=== PATIENT | male | born 1970 | race Caucasian/White ===

== ENCOUNTER 2018-08-18 12:42 | Inpatient (IN) | payer OTHER ==
--- NOTE | 2018-08-18 15:57 | GHP ---
[f rep st] HISTORY AND PHYSICAL POST ADMISSION PHYSICIAN EVALUATION AND REHABILITATION TREATMENT PLAN DATE OF ADMISSION: 08/18/2018 DATE OF EVALUATION: 08/18/2018. TIME OF EVALUATION: 1320. REFERRING FACILITY: [facility]. IMPAIRMENT GROUP: 1.1. DATE OF ONSET: 08/07/2018. REFERRING PHYSICIAN: Dr. Islas. CONSULTING PHYSICIANS: 1. Dr. Kiran with Critical Care. 2. Dr. Gross with Neurology. 3. Dr. Lee with Cardiology. 4. Dr. Aranda with Gastroenterology. REHABILITATION DIAGNOSIS: Posterior circulation cerebrovascular accident with rightvisual field cut after myocardial infarction. ETIOLOGIC DIAGNOSIS: Left body involvement (right brain). HISTORY OF PRESENT ILLNESS: This man had chest pain at home and called an ambulance. He developed ventricular fibrillation cardiac arrest in the ambulance on the way to the hospital. He had intermittent return of spontaneous circulation after treatment per ACLS protocols. In the hospital, he was initially too unstable to go to the cardiac [facility], so he was treated with tPA thrombolysis. When he later was taken to the laborer [facility], he was found to have 100% mid-LAD lesion, which was successfully stented with a drug-eluting stent. He was treated with dual-antiplatelet therapy and a statin. Beta randell and ROLY inhibitor were initially contraindicated due to cardiogenic shock. He had placement of a balloon pump, which was later changed to an Impella. He was intubated and treated with hypothermia after cardiac arrest protocol. Hospital complications included significant bleeding from his groin site. He developed a large hematoma of the left groin, which was successfully treated. He needed a blood transfusion for anemia. He had nonsustained wide-complex tachycardia, which was treated with amiodarone. There was acute kidney injury. There was massive rectal bleeding with a previous diagnosis of likely ulcerative colitis. Ejection fraction on echo during his stay was 53%. He was noted to have a right visual field deficit. A CT of the brain showed a left subacute posterior cerebral artery stroke in the parietooccipital region. He was ultimately medically stabilized and appropriate for inpatient rehabilitation. OTHER STUDIES AND LABS DURING HIS STAY: Cardiac cath showed single-vessel coronary artery disease in the mid-left anterior descending artery. Chest x- ray showed no evidence for acute infiltrate or other acute cardiopulmonary disease. CT abdomen and pelvis was consistent with active bleeding of the left common femoral vein in the left groin and pancolitis. Head CT showed an ischemic infarct in the left posterior cerebral artery distribution, which was most likely subacute. MOST RECENT LABS STUDIES: Basic metabolic profile on 08/16/2018 was overall normal but for a potassium of 3.0. The next day, on 08/17/2018, potassium had improved to 3.4. CBC done on 08/17/2018 showed anemia with a hemoglobin of 8.3 and hematocrit of 26. Platelet count was normal. The white blood cell count was normal, and the anemia had been improving over the previous day. PRECAUTIONS: He is a fall risk. ACTIVE COMORBIDITIES: He has no active tier 1, tier 2, or tier 3 comorbidities. PAST MEDICAL HISTORY: He denies any history of prior medical illnesses, though he had a colonoscopy approximately a week prior to his hospitalization with pathology consistent with ulcerative colitis. PAST SURGICAL HISTORY: He reports history of a hernia surgery when he was a child. PREHOSPITAL MEDICATIONS: He was on no medications. ADMISSION MEDICATIONS: 1. Aspirin 81 mg p.o. daily. 2. Atorvastatin 40 mg p.o. at bedtime. 3. Lisinopril 5 mg p.o. daily. 4. Mesalamine 1.2 g delayed-release tablet, 3.6 g by mouth daily. 5. Metoprolol 12.5 mg p.o. b.i.d. 6. Pantoprazole 40 mg p.o. b.i.d. with meals. 7. Potassium chloride 20 mEq by mouth b.i.d. with meals. 8. Ticagrelor 90 mg p.o. b.i.d. ALLERGIES: There are no known drug allergies. PSYCHOSOCIAL: He is and lives with his . He has 2 teenage children. He has a remote history of cigarette smoking but is not a smoker currently. He uses occasional alcohol. 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 FAMILY HISTORY: His mother of COPD. His father is alive at 94 years old with multiple medical problems. REVIEW OF SYSTEMS: He has a hoarse voice, which he thinks if from having been intubated and reports it is improving. He is aware of a right visual field defect. He denies headache, difficulty swallowing, weakness, numbness or tingling of the extremities, or loss of sensation. He denies fever or chills. He denies cough or dyspnea. He has no chest pain or palpitations. He denies nausea, vomiting, or constipation. He is having frequent loose stools. He denies dysuria or urinary frequency, pain or joint swelling. He endorses a feeling of sadness. He reports he snores at night. He has been sleeping well. He is aware of difficulty finding words. PHYSICAL EXAM: VITAL SIGNS: Blood pressure is 115/76, heart rate is 85, respiratory rate 15, oxygen saturation 96% on room air, temperature is 36.4 degrees Centigrade. GENERAL: This is a well-nourished, well-developed man, sitting in a chair, dressed in street clothes, cooperative, and in no acute distress. HEENT: Extraocular movements are intact. Pupils are equal, round, and reactive to light. He has lateral deviation of left eye when he is not fixing his gaze. Mucous membranes are moist. Dentition is in good condition. Mostly uncrowded airway, Mallampati class 2. He has a slightly erythematous uvula. He has a hoarse voice. NECK: Supple. HEART: There is a regular rate and rhythm. No murmurs or gallops. There is no JVD. There is no carotid bruit. LUNGS: Clear to auscultation bilaterally. ABDOMEN: Soft, nontender. Normoactive bowel sounds and no hepatosplenomegaly. EXTREMITIES: There is no cyanosis, clubbing, or edema. NEUROLOGIC: He is alert and oriented x3. He may have some word-finding difficulties but it is subtle. Cranial nerves 2-12 are grossly intact. There is no focal weakness. Sensation is intact to light touch. Deep tendon reflexes are 2+ bilaterally at the biceps, patellar, and Achilles tendons. There is no pronator drift. There is a right visual field cut. SKIN: There is minimal crusting around the proximal gluteal fold. There is no ulceration and no erythema. CURRENT LEVEL OF FUNCTION PER THE PREADMISSION SCREEN: Regarding diet, feeding , and swallowing, he was on a regular diet with thin liquids. Grooming required minimal assist with verbal cues and seated bathing required maximal assist for sponge bathing. Dressing was done with minimal to moderate assist and verbal cues for his shirt. He required maximal assist to don socks. Bed mobility for supine to sit required minimal assist and sit to supine was done with supervision. Transfers required minimal assist for sit to stand and moderate assist for toilet transfers. using a front-wheeled walker. Balance required minimal assist to stand and standby assist for seated balance. He was noted to have easy fatigue. He was able to ambulate 60 feet with a front- wheeled walker, seated rest breaks, and cues to scan the right side. He has a tendency to get the front-wheeled walker caught on obstacles on his right side. Regarding cognition, the [place] Cognitive Assessment, was administered and he scored 18/25. He had difficulty with generative naming and delayed recall. He had decreased orientation. He had a right visual field deficit and right neglect. On today's exam, he appears to have improved mobility, able to arise from seated to standing, ambulate with front-wheeled walker with no assistance. Otherwise, today's exam is consistent with the preadmission screen. IMPRESSION: This is a 48-year-old man who suffered a myocardial infarction with ventricular fibrillation cardiac arrest while in the ambulance. He initially was treated with tPA thrombolysis because of unstable cardiac condition. Eventually, he went to the catheterization lab where he was found to have a mid-left anterior descending occlusion. This was treated with a drug- eluting stent. He required an intra-aortic balloon pump and subsequently, an Impella to maintain circulation. He was intubated and treated with hypothermia after cardiac arrest protocol. Hospital complications included anemia with bleeding at the groin site from cardiac catheterization, about 500 cc gastrointestinal blood loss, which was attributed to ulcerative colitis, acute kidney injury, and a right posterior cerebral artery cerebrovascular accident. There was acute kidney injury and hypokalemia. He was treated with dual- antiplatelet therapy, atorvastatin, beta randell, an ROLY inhibitor, and mesalamine for the ulcerative colitis. He was eventually medically stabilized and is appropriate for inpatient rehabilitation. His plan is to complete a rehabilitation stay and then return home with his family and home care or outpatient services depending on that time. For a safe discharge, he will need to advance to supervision level with self-care and mobility using the least restrictive device. It is likely he will require support at home for instrumental activities of daily living. He will have therapy with Physical Therapy, Occupational Therapy, and Speech and language Pathology for 60 minutes per day for each discipline on 5 to 7 days of the week. His expected duration of stay is 14 to 21 days. It is anticipated that upon discharge, he will continue to benefit from outpatient therapy including OT, BATTERY FILLER, and PT. Additionally, he will benefit from a stroke support group and cardiac rehabilitation. PLAN: 1. Debility and right visual field cut following myocardial infarction, hypothermia after cardiac arrest protocol, and some time on the ventilator with a right posterior cerebral artery stroke. PT and OT to optimize mobility and activities of daily living towards the supervision level. 2. Cognitive impairment. 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 He will have assessment and treatment per Speech and Language Pathology. 3. Coronary artery disease, status post mid-LAD drug-eluting stent. He is treated for secondary prevention with dual-antiplatelet therapy which will likely continue for a year, ROLY inhibitor, statin, and beta randell. Discharge instructions include titrating beta randell if possible, so his blood pressure will be carefully monitored. 4. Ulcerative colitis with large GI bleed while in the hospital. Continue mesalamine. The Lialda brand which was prescribed in the hospital is not available on formulary, so we will treat with Delzicol 800 mg t.i.d. and this should continue for 6 weeks. He will follow up with [employer]ated Truck Driver, Dr. Jimenez, after his discharge for further treatment. Additionally, continue pantoprazole 40 mg per day. 5. Acute kidney injury and hypokalemia in the hospital. Check BMP in the morning. 6. Anemia in the hospital. Check CBC. 7. Adjustment disorder with depressed mood versus depression after myocardial infarction. He indicated preference to not take medications. There is not strong literature supporting treatment of depression improving outcomes and situation. He will be monitored for symptoms but will consider further discussion regarding antidepressant therapy. 8. Followup. He has his followup scheduled with Cardiology Nurse Practitioner , Luis Spencer, for 08/24/2018, at 1:15 p.m. Regarding ulcerative colitis. he will see [employer] Driver, Dr. Norma Jimenez, after his discharge from rehabilitation. His primary care provider is Dr. Jorgensen, with whom he will follow up after discharge. /[id number]/MODL MTDD
[2018-08-18] MEDS: POTASSIUM CL 20 MEQ TAB PO SCH (17:29)
[2018-08-18] MEDS: PANTOPRAZOLE SODIUM 40 MG TAB PO SCH (17:29)
[2018-08-18] MEDS: ATORVASTATIN CALCIUM 40 MG TAB PO SCH (20:21)
[2018-08-18] MEDS: METOPROLOL TARTRATE 25 MG TAB PO SCH (20:21)
[2018-08-18] MEDS: TICAGRELOR 90 MG TAB PO SCH (20:22)
[2018-08-19] MEDS: MESALAMINE 400 MG CAP.DR PO SCH ×3 (07:17→16:04)
[2018-08-19] MEDS: PANTOPRAZOLE SODIUM 40 MG TAB PO SCH ×2 (08:51→18:22)
[2018-08-19] MEDS: POTASSIUM CL 20 MEQ TAB PO SCH (08:52)
[2018-08-19] MEDS: LISINOPRIL 5 MG TAB PO SCH (08:54)
[2018-08-19] MEDS: ASPIRIN 81 MG CHEWABLE TAB PO SCH (08:54)
[2018-08-19] MEDS: METOPROLOL TARTRATE 25 MG TAB PO SCH ×2 (08:54→21:23)
[2018-08-19] MEDS: TICAGRELOR 90 MG TAB PO SCH ×2 (08:54→21:23)
[2018-08-19 08:59] LABS: PLATELET COUNT 403 10^3/uL (150-400)
--- NOTE | 2018-08-19 09:37 | SOAPPROG ---
SOAP Progress Note Assessment/Plan: Assessment: Debility and right visual field cut following myocardial infarction, hypothermia after cardiac arrest protocol, and some time on the ventilator with a right posterior cerebral artery stroke. PT and OT to optimize mobility and activities of daily living towards the supervision level. Cognitive impairment. 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 He will have assessment and treatment per Speech and Language Pathology. Cough. New on 08/19/2018? No signs or symptoms of pneumonia otherwise, no hypoxia or tachypnea, and normal white blood cell count. Continue to monitor. Coronary artery disease, status post mid-LAD drug-eluting stent. He is treated for secondary prevention with dual-antiplatelet therapy which will likely continue for a year, ROLY inhibitor, statin, and beta randell. Discharge instructions include titrating beta randell if possible, so his blood pressure will be carefully monitored. Ulcerative colitis with large GI bleed while in the hospital. Continue mesalamine. The Lialda brand which was prescribed in the hospital is not available on formulary, so we will treat with Delzicol 800 mg t.i.d. and this should continue for 6 weeks. He will follow up with Nephrology Nurse, Dr. Jimenez, after his discharge for further treatment. Additionally, continue pantoprazole 40 mg per day. * Still having frequent bowel movements. Continue monitor. Acute kidney injury and hypokalemia in the hospital. * Blood sample was hemolyzed this morning, 08/19/2018. He prefers to not have another blood draw today. Discussed further with patient. Will reduce potassium to daily starting 08/19/2018. Check BMP on 08/22/2018. Will discontinue potassium if possible. Anemia in the hospital. Improving on CBC 08/19/2018. Adjustment disorder with depressed mood versus depression after myocardial infarction. He indicated preference to not take medications. There is not strong literature supporting treatment of depression improving outcomes and situation. He will be monitored for symptoms but will consider further discussion regarding antidepressant therapy. Followup. He has his followup scheduled with Cardiology Nurse Practitioner, Luis Spencer, for 08/24/2018, at 1:15 p.m. Regarding ulcerative colitis. he will see Nephrology Nurse, Dr. Norma Jimenez, after his discharge from rehabilitation. His primary care provider is Dr. Jorgensen, with whom he will follow up after discharge. 08/19/18 11:50 Subjective: Slept well. Has some pain in his chest wall which she attributes to the chest compressions during his resuscitation. He has an occasional cough and is bringing up some phlegm. He denies dyspnea, fevers, chills, head congestion or URI symptoms. There is no paroxysmal nocturnal dyspnea. Objective: Vital Signs Temp Pulse Resp BP Pulse Ox 36.6 C 103 H 16 111/71 99 08/19/18 06:06 08/19/18 08:49 08/19/18 06:06 08/19/18 08:49 08/19/18 08:49 Laboratory Results 08/19/18 06:00 08/18/18 08/19/18 08/20/18 05:59 05:59 05:59 Intake Total 750 Balance 750 Physical Exam - Physical Exam General Appearance: WD/WN, alert, no apparent distress Respiratory: normal breath sounds, No crackles, No rhonchi, No wheezing Cardiac/Chest: regular rate, rhythm, No edema, No diastolic murmur, No systolic murmur Skin: normal color, warm/dry Neuro/Psych: alert, oriented x 3, other (Flat affect) ICD10 Worksheet Patient Problems: Problems Problem Status Onset Cerebrovascular accident (CVA) involving posterior circulation Acute
--- NOTE | 2018-08-19 09:37 | PDOREHIP ---
Admission [facility] - Admission - 3 Day Assessment Period Admission Date/Day 1: 08/18/18 Day 2: 08/19/18 Day 3: 08/20/18 - Active Diagnoses Comorbidities and Co-existing Conditions at Admission: 58883. None of the Above - Skin Conditions Unhealed Pressure Ulcer (1 or more/Stage 1 or >)-Admission: 0. No # Stage 1 Pressure Ulcers-Admission: 0 # Stage 2 Pressure Ulcers-Admission: 0 # Stage 3 Pressure Ulcers-Admission: 0 # Stage 4 Pressure Ulcers-Admission: 0 # Unstageable Pressure Ulcers (Non-remove Dress)-Admission: 0 # Unstageable Pressure Ulcers (Slough/Eschar)-Admission: 0 # Unstageable Pressure Ulcers (Deep Tissue Injury)-Admission: 0
[2018-08-19] MEDS: ATORVASTATIN CALCIUM 40 MG TAB PO SCH (21:22)
[2018-08-20] MEDS: MESALAMINE 400 MG CAP.DR PO SCH ×3 (07:06→17:08)
[2018-08-20] MEDS: PANTOPRAZOLE SODIUM 40 MG TAB PO SCH ×2 (07:41→17:09)
[2018-08-20] MEDS: POTASSIUM CL 20 MEQ TAB PO SCH (08:15)
[2018-08-20] MEDS: METOPROLOL TARTRATE 25 MG TAB PO SCH ×2 (08:19→20:47)
[2018-08-20] MEDS: LISINOPRIL 5 MG TAB PO SCH (08:20)
[2018-08-20] MEDS: TICAGRELOR 90 MG TAB PO SCH ×2 (08:20→20:48)
[2018-08-20] MEDS: ASPIRIN 81 MG CHEWABLE TAB PO SCH (08:20)
--- NOTE | 2018-08-20 11:51 | HOSPPROG ---
Hospitalist Progress Note Assessment/Plan: Debility and right visual field cut following myocardial infarction, hypothermia after cardiac arrest protocol, and some time on the ventilator with a right posterior cerebral artery stroke. PT and OT to optimize mobility and activities of daily living towards the supervision level. Cognitive impairment. 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 He will have assessment and treatment per Speech and Language Pathology. Cough. New on 08/19/2018? No signs or symptoms of pneumonia otherwise, no hypoxia or tachypnea, and normal white blood cell count. Continue to monitor. Coronary artery disease, status post mid-LAD drug-eluting stent. He is treated for secondary prevention with dual-antiplatelet therapy which will likely continue for a year, ROLY inhibitor, statin, and beta randell. Discharge instructions include titrating beta randell if possible, so his blood pressure will be carefully monitored. Ulcerative colitis with large GI bleed while in the hospital. Continue mesalamine. The Lialda brand which was prescribed in the hospital is not available on formulary, so we will treat with Delzicol 800 mg t.i.d. and this should continue for 6 weeks. He will follow up with Music Teacher, Dr. Jimenez, after his discharge for further treatment. Additionally, continue pantoprazole 40 mg per day. * Still having frequent bowel movements. Continue monitor. Acute kidney injury and hypokalemia in the hospital. * Blood sample was hemolyzed this morning, 08/19/2018. He prefers to not have another blood draw today. Discussed further with patient. Will reduce potassium to daily starting 08/19/2018. Check BMP on 08/22/2018. Will discontinue potassium if possible. Anemia in the hospital. Improving on CBC 08/19/2018. Adjustment disorder with depressed mood versus depression after myocardial infarction. He indicated preference to not take medications. There is not strong literature supporting treatment of depression improving outcomes and situation. He will be monitored for symptoms but will consider further discussion regarding antidepressant therapy. Followup. He has his followup scheduled with Cardiology Nurse Practitioner, Luis Spencer, for 08/24/2018, at 1:15 p.m. Regarding ulcerative colitis. he will see Music Teacher, Dr. Norma Jimenez, after his discharge from rehabilitation. His primary care provider is Dr. Jorgensen, with whom he will follow up after discharge. Subjective: c/o right peripheral visual field defect. some chest soreness Objective: Vital Signs Temp Pulse Resp BP Pulse Ox 36.6 C 61 15 133/80 H 96 08/20/18 07:41 08/20/18 08:19 08/20/18 07:41 08/20/18 08:20 08/20/18 07:41 Laboratory Results 08/19/18 06:00 08/19/18 06:00 08/19/18 08/20/18 08/21/18 05:59 05:59 05:59 Intake Total 750 2140 480 Balance 750 2140 480 - Physical Exam Constitutional: no apparent distress, appears nourished, not in pain Eyes: anicteric sclera, EOMI Ears, Nose, Mouth, Throat: moist mucous membranes Cardiovascular: regular rate and rhythym, no murmur, rub, or gallop Respiratory: no respiratory distress, no rales or rhonchi, clear to auscultation Gastrointestinal: normoactive bowel sounds, soft, non-tender abdomen, no palpable masses Neurologic: AAOx3 Psychiatric: interacting appropriately, not anxious, not encephalopathic, thought process linear ICD10 Worksheet Patient Problems: Problems Problem Status Onset Cerebrovascular accident (CVA) involving posterior circulation Acute
[2018-08-20] MEDS: ATORVASTATIN CALCIUM 40 MG TAB PO SCH (20:48)
[2018-08-21] MEDS: MESALAMINE 400 MG CAP.DR PO SCH ×3 (07:02→16:56)
[2018-08-21] MEDS: TICAGRELOR 90 MG TAB PO SCH ×2 (08:24→21:19)
[2018-08-21] MEDS: LISINOPRIL 5 MG TAB PO SCH (08:24)
[2018-08-21] MEDS: POTASSIUM CL 20 MEQ TAB PO SCH ×2 (08:24→08:35)
[2018-08-21] MEDS: ASPIRIN 81 MG CHEWABLE TAB PO SCH (08:24)
[2018-08-21] MEDS: METOPROLOL TARTRATE 25 MG TAB PO SCH ×2 (08:24→21:19)
[2018-08-21] MEDS: PANTOPRAZOLE SODIUM 40 MG TAB PO SCH ×2 (08:25→17:37)
--- NOTE | 2018-08-21 12:15 | HOSPPROG ---
Hospitalist Progress Note Assessment/Plan: Debility and right visual field cut following myocardial infarction, hypothermia after cardiac arrest protocol, and some time on the ventilator with a right posterior cerebral artery stroke. PT and OT to optimize mobility and activities of daily living towards the supervision level. Cognitive impairment. 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 He will have assessment and treatment per Speech and Language Pathology. Cough. New on 08/19/2018? No signs or symptoms of pneumonia otherwise, no hypoxia or tachypnea, and normal white blood cell count. Continue to monitor. * no complaint this weekend Coronary artery disease, status post mid-LAD drug-eluting stent. He is treated for secondary prevention with dual-antiplatelet therapy which will likely continue for a year, ROLY inhibitor, statin, and beta randell. Discharge instructions include titrating beta randell if possible, so his blood pressure will be carefully monitored. Ulcerative colitis with large GI bleed while in the hospital. Continue mesalamine. The Lialda brand which was prescribed in the hospital is not available on formulary, so we will treat with Delzicol 800 mg t.i.d. and this should continue for 6 weeks. He will follow up with Bridge Opener, Dr. Jimenez, after his discharge for further treatment. Additionally, continue pantoprazole 40 mg per day. * Still having frequent bowel movements. Continue monitor. Acute kidney injury and hypokalemia in the hospital. * Blood sample was hemolyzed this morning, 08/19/2018. He prefers to not have another blood draw today. Discussed further with patient. Will reduce potassium to daily starting 08/19/2018. Check BMP on 08/22/2018. Will discontinue potassium if possible. * refused potassium 08/21 - check bmp tomorrow Anemia in the hospital. Improving on CBC 08/19/2018. Adjustment disorder with depressed mood versus depression after myocardial infarction. He indicated preference to not take medications. There is not strong literature supporting treatment of depression improving outcomes and situation. He will be monitored for symptoms but will consider further discussion regarding antidepressant therapy. Followup. He has his followup scheduled with Cardiology Nurse Practitioner, Luis Spencer, for 08/24/2018, at 1:15 p.m. Regarding ulcerative colitis. he will see Bridge Opener, Dr. Norma Jimenez, after his discharge from rehabilitation. His primary care provider is Dr. Jorgensen, with whom he will follow up after discharge. Subjective: no new compliants. eating better with reg diet rather than cardiac Objective: Vital Signs Temp Pulse Resp BP Pulse Ox 36.6 C 76 16 125/84 H 93 08/21/18 06:25 08/21/18 08:24 08/21/18 06:25 08/21/18 08:24 08/21/18 06:25 Laboratory Results 08/19/18 06:00 08/19/18 06:00 08/20/18 08/21/18 08/22/18 05:59 05:59 05:59 Intake Total 2139 2079 480 Balance 2139 2079 480 - Physical Exam Constitutional: no apparent distress, appears nourished, not in pain Eyes: anicteric sclera, EOMI Ears, Nose, Mouth, Throat: moist mucous membranes Cardiovascular: regular rate and rhythym Respiratory: no respiratory distress Neurologic: AAOx3 Psychiatric: interacting appropriately, not anxious, not encephalopathic, thought process linear ICD10 Worksheet Patient Problems: Problems Problem Status Onset Cerebrovascular accident (CVA) involving posterior circulation Acute
[2018-08-21] MEDS: ATORVASTATIN CALCIUM 40 MG TAB PO SCH (21:19)
[2018-08-22] MEDS: MESALAMINE 400 MG CAP.DR PO SCH ×3 (07:06→16:04)
[2018-08-22] MEDS: ASPIRIN 81 MG CHEWABLE TAB PO SCH (08:33)
[2018-08-22] MEDS: PANTOPRAZOLE SODIUM 40 MG TAB PO SCH ×2 (08:33→18:02)
[2018-08-22] MEDS: LISINOPRIL 5 MG TAB PO SCH (08:34)
[2018-08-22] MEDS: POTASSIUM CL 20 MEQ TAB PO SCH (08:39)
[2018-08-22] MEDS: TICAGRELOR 90 MG TAB PO SCH ×2 (08:40→21:16)
--- NOTE | 2018-08-22 11:07 | SOAPPROG ---
SOAP Progress Note Assessment/Plan: Assessment: Debility and right visual field cut following myocardial infarction, hypothermia after cardiac arrest protocol, and some time on the ventilator with a right posterior cerebral artery stroke. * Initial functional independence measure is 91 on 08/22/2018. Independent with bed mobility and transfers. Scored 51/56 on the Castaneda balance inventory. Climbed and descended 12 stairs with 1 rail. Independent with ADLs. Has a right visual field cut. * Continue PT and OT to optimize mobility and activities of daily living towards the supervision level. Cognitive impairment. 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 * Has issues with memory and attention. Has occasional word retrieval difficulty. Reading abilities decreased due to his visual field cut. He will need assistance with medication management and will need to recover before he is able to return to work. * Continue SKIDDER RUNNER Cough and hoarseness. * No signs or symptoms of pneumonia otherwise, no hypoxia or tachypnea, and normal white blood cell count. * If hoarseness persists he should consider endoscopy to rule out granuloma formation or other complication of [place]. Coronary artery disease, status post mid-LAD drug-eluting stent. He is treated for secondary prevention with dual-antiplatelet therapy which will likely continue for a year, ROLY inhibitor, statin, and beta randell. Discharge instructions include titrating beta randell if possible, so his blood pressure will be carefully monitored. * Blood pressure is running low, 08/22/2018. Metoprolol was held. Added parameters for metoprolol. Will decrease lisinopril to 2.5 mg q.day starting . Ulcerative colitis with large GI bleed while in the hospital. Continue mesalamine. The Lialda brand which was prescribed in the hospital is not available on formulary, so we will treat with Delzicol 800 mg t.i.d. and this should continue for 6 weeks. He will follow up with Finishing Tunnel Operator, Dr. Jimenez, after his discharge for further treatment. Additionally, continue pantoprazole 40 mg per day. * He reports 1 normal bowel movement each day, and also has more frequent very small loose bowel movements, which do not concern him. * No other symptoms including no abdominal pain and no fevers or chills. Acute kidney injury and hypokalemia in the hospital. * Blood sample was hemolyzed this morning, 08/19/2018. He prefers to not have another blood draw today. Discussed further with patient. Will reduce potassium to daily starting 08/19/2018. * He has refused potassium supplement x2 days. BMP on 08/22/2018 is hemolyzed. * Repeat BMP on 08/24/2018 bed perhaps oven loader from clinic across the street can come to the draw. Anemia in the hospital. Improving on CBC 08/19/2018. * Repeat 08/23/2018. Adjustment disorder with depressed mood versus depression after myocardial infarction. He indicated preference to not take medications. There is not strong literature supporting treatment of depression improving outcomes and situation. He will be monitored for symptoms but will consider further discussion regarding antidepressant therapy. DISPOSITION: Attended staffing, 08/22/2018. Discussed with case management, dietitian, nursing, PT, OT, SKIDDER RUNNER. Lives with his and 2 teenage children. She works at home part of the time but is mostly unavailable to provide assistance during the day. Discharge date set for 08/24/2018. Followup. He has his followup scheduled with Cardiology Nurse Practitioner, Luis Spencer, for 08/24/2018, at 1:15 p.m. Regarding ulcerative colitis. he will see Finishing Tunnel Operator, Dr. Norma Jimenez, after his discharge from rehabilitation. His primary care provider is Dr. Jorgensen, with whom he will follow up after discharge. He will be referred for cardiac rehabilitation. He will be referred to Neuro-Ophthalmology. 08/22/18 10:51 Objective: Vital Signs Temp Pulse Resp BP Pulse Ox 36.5 C 88 16 99/64 L 97 08/22/18 06:27 08/22/18 10:50 08/22/18 06:27 08/22/18 10:50 08/22/18 08:45 Laboratory Results 08/19/18 06:00 08/22/18 07:15 08/21/18 08/22/18 08/23/18 05:59 05:59 05:59 Intake Total 2080 720 1250 Balance 2080 720 1250 - Time Spent With Patient Time Spent With Patient: Greater than 35 min floor time today, including more than 50% of time in coordination of care during staffing meeting, and counseling patient. ICD10 Worksheet Patient Problems: Problems Problem Status Onset Cerebrovascular accident (CVA) involving posterior circulation Acute
[2018-08-22] MEDS: METOPROLOL TARTRATE 25 MG TAB PO SCH ×2 (11:08→21:14)
[2018-08-22] MEDS: ATORVASTATIN CALCIUM 40 MG TAB PO SCH (21:13)
[2018-08-23] MEDS: MESALAMINE 400 MG CAP.DR PO SCH ×3 (07:00→15:53)
[2018-08-23] MEDS: POTASSIUM CL 20 MEQ TAB PO SCH (07:39)
[2018-08-23] MEDS: LISINOPRIL 5 MG TAB PO SCH (07:56)
[2018-08-23] MEDS: ASPIRIN 81 MG CHEWABLE TAB PO SCH (07:56)
[2018-08-23] MEDS: TICAGRELOR 90 MG TAB PO SCH ×2 (07:56→20:52)
[2018-08-23] MEDS: PANTOPRAZOLE SODIUM 40 MG TAB PO SCH ×2 (07:56→15:56)
[2018-08-23] MEDS: METOPROLOL TARTRATE 25 MG TAB PO SCH ×2 (07:59→20:52)
[2018-08-23 15:38] LABS: PLATELET COUNT 644 10^3/uL (150-400)
[2018-08-23] MEDS ORDERED: LISINOPRIL 5 MG TAB PO SCH (15:49)
--- NOTE | 2018-08-23 15:50 | SOAPPROG ---
SOAP Progress Note Assessment/Plan: Assessment: Debility and right visual field cut following myocardial infarction, hypothermia after cardiac arrest protocol, and some time on the ventilator with a right posterior cerebral artery stroke. * Initial functional independence measure is 91 on 08/22/2018. Independent with bed mobility and transfers. Scored 51/56 on the Castaneda balance inventory. Climbed and descended 12 stairs with 1 rail. Independent with ADLs. Has a right visual field cut. * Continue PT and OT to optimize mobility and activities of daily living towards the supervision level. Cognitive impairment. 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 * Has issues with memory and attention. Has occasional word retrieval difficulty. Reading abilities decreased due to his visual field cut. He will need assistance with medication management and will need to recover before he is able to return to work. * Continue LITHOGRAPHIC PRESS OPERATOR APPRENTICE Cough and hoarseness. * No signs or symptoms of pneumonia otherwise, no hypoxia or tachypnea, and normal white blood cell count. * If hoarseness persists he should consider endoscopy to rule out granuloma formation or other complication of [place] roy. Coronary artery disease, status post mid-LAD drug-eluting stent. He is treated for secondary prevention with dual-antiplatelet therapy which will likely continue for a year, ROLY inhibitor, statin, and beta randell. Discharge instructions include titrating beta randell if possible, so his blood pressure will be carefully monitored. * Blood pressure is running low, 08/22/2018. Metoprolol was held. Added parameters for metoprolol. Will decrease lisinopril to 2.5 mg q.day starting . * BMP normal with no dehydration. CBC with improving anemia. BNP 439, neither ruling out nor ruling in CHF. Message left for mainframe programmer analyst Dr. Lee. Will follow-up with Dr. Lee's PA tomorrow 08/24/2018 after discharge. Ulcerative colitis with large GI bleed while in the hospital. Continue mesalamine. The Lialda brand which was prescribed in the hospital is not available on formulary, so we will treat with Delzicol 800 mg t.i.d. and this should continue for 6 weeks. He will follow up with Passenger Car Upholsterer Apprentice, Dr. Jimenez, after his discharge for further treatment. Additionally, continue pantoprazole 40 mg per day. * He reports 1 normal bowel movement each day, and also has more frequent very small loose bowel movements, which do not concern him. * No other symptoms including no abdominal pain and no fevers or chills. Acute kidney injury and hypokalemia in the hospital. * Blood sample was hemolyzed this morning, 08/19/2018. He prefers to not have another blood draw today. Discussed further with patient. Will reduce potassium to daily starting 08/19/2018. * He has refused potassium supplement x2 days. BMP on 08/22/2018 is hemolyzed. * Repeat BMP on 08/24/2018 bed perhaps ep tech from clinic across the street can come to the draw. Anemia in the hospital. Improving on CBC 08/19/2018. * Improving 08/23/2018. Adjustment disorder with depressed mood versus depression after myocardial infarction. He indicated preference to not take medications. There is not strong literature supporting treatment of depression improving outcomes and situation. He will be monitored for symptoms but will consider further discussion regarding antidepressant therapy. DISPOSITION: Attended staffing, 08/22/2018. Discussed with case management, dietitian, nursing, PT, OT, LITHOGRAPHIC PRESS OPERATOR APPRENTICE. Lives with his and 2 teenage children. She works at home part of the time but is mostly unavailable to provide assistance during the day. Discharge date set for 08/24/2018. Followup. He has his followup scheduled with Cardiology Nurse Practitioner, Luis Spencer, for 08/24/2018, at 1:15 p.m. Regarding ulcerative colitis. he will see Passenger Car Upholsterer Apprentice, Dr. Norma Jimneez, after his discharge from rehabilitation. His primary care provider is Dr. Jorgensen, with whom he will follow up after discharge. He will be referred for cardiac rehabilitation. He will be referred to Neuro-Ophthalmology. He will have outpatient PT, OT and LITHOGRAPHIC PRESS OPERATOR APPRENTICE. 08/23/18 17:35 Subjective: Feels weak today. Had low blood pressure this morning and was orthostatic by pulse. Continues to have chest wall pain with deep inspiration but no chest pain otherwise. No fevers or chills. Continues to have a cough but no dyspnea. Notes cough increased when he lays down at night. He feels his current meds Oleg mean dose is providing adequate control of his ulcerative colitis symptoms per Objective: Vital Signs Temp Pulse Resp BP Pulse Ox 36.6 C 80 16 104/69 95 08/23/18 08:00 08/23/18 08:00 08/23/18 08:00 08/23/18 08:00 08/23/18 08:00 Laboratory Results 08/23/18 14:50 08/22/18 08/23/18 08/24/18 05:59 05:59 05:59 Intake Total 720 2425 960 Balance 720 2425 960 Physical Exam - Physical Exam General Appearance: WD/WN, alert, no apparent distress Respiratory: normal breath sounds, No crackles, No rhonchi, No wheezing Cardiac/Chest: regular rate, rhythm, JVD, No diastolic murmur, No systolic murmur Skin: normal color, warm/dry Neuro/Psych: alert, normal mood/affect, oriented x 3 ICD10 Worksheet Patient Problems: Problems Problem Status Onset Cerebrovascular accident (CVA) involving posterior circulation Acute
--- NOTE | 2018-08-23 17:38 | PDOREHIP ---
Admission [facility] - Admission - 3 Day Assessment Period Admission Date/Day 1: 08/18/18 Day 2: 08/19/18 Day 3: 08/20/18 - Active Diagnoses Comorbidities and Co-existing Conditions at Admission: 97266. None of the Above Discharge [facility] - Discharge - 3 Day Assessment Period 2 Days Prior to Anticipated Discharge Date: 08/22/18 1 Day Prior to Anticipated Discharge Date: 08/23/18 Anticipated Discharge Date: 08/24/18 - Discharge Skin Conditions Unhealed Pressure Ulcer (1 or more/Stage 1 or >)-Discharge: 0. No # Stage 1 Pressure Ulcers-Discharge: 0 # Stage 2 Pressure Ulcers-Discharge: 0 # of These Stage 2 Pressure Ulcers Present on Admission: 0 # Stage 3 Pressure Ulcers-Discharge: 0 # of These Stage 3 Pressure Ulcers Present on Admission: 0 # Stage 4 Pressure Ulcers-Discharge: 0 # of These Stage 4 Pressure Ulcers Present on Admission: 0 # Unstageable Pressure Ulcers (Non-remove Dress)-Discharge: 0 # These Unstageable Pressure Ulcers (NRD)-Present on Admit: 0 # Unstageable Pressure Ulcers (Slough/Eschar)-Discharge: 0 # These Unstageable Pressure Ulcers(Slough) Present on Admit: 0 # Unstageable Pressure Ulcers (Deep Tissue Injury)-Discharge: 0 # These Unstageable Pressure Ulcers (DTI) Present on Admit: 0
[2018-08-23] MEDS: ATORVASTATIN CALCIUM 40 MG TAB PO SCH (20:52)
[2018-08-24] MEDS: MESALAMINE 400 MG CAP.DR PO SCH ×2 (07:00→10:52)
[2018-08-24 07:06] VITALS: BP 102/70
[2018-08-24] MEDS: ASPIRIN 81 MG CHEWABLE TAB PO SCH (08:48)
[2018-08-24] MEDS: TICAGRELOR 90 MG TAB PO SCH (08:49)
[2018-08-24] MEDS: PANTOPRAZOLE SODIUM 40 MG TAB PO SCH (08:49)
[2018-08-24] MEDS: METOPROLOL TARTRATE 25 MG TAB PO SCH (09:11)
--- NOTE | 2018-08-24 18:27 | GDS ---
[f rep st] DISCHARGE SUMMARY ADMITTING DIAGNOSIS: Cerebrovascular accident following myocardial infarction. DISCHARGE DIAGNOSIS: Cerebrovascular accident following myocardial infarction. OTHER DISCHARGE DIAGNOSES: 1. Cough and hoarseness. 2. Ulcerative colitis. 3. Anemia. COMPLICATIONS: There were none. CONSULTATIONS: There were none. PROCEDURES: There were none. HISTORY AND HOSPITAL COURSE: This patient was admitted from [facility]. He had presented there on 08/07/2018. He had chest pain and called an ambulance. In the ambulance on the way to the hospital, he suffered ventricular fibrillation and cardiac arrest, and was treated with ACLS protocols. He had intermittent return of spontaneous circulation. When he arrived to the hospital, he was diagnosed with an ST-elevation myocardial infarction. He was initially too unstable to go to the cardiac catheterization lab, so he was treated with tPA thrombolysis. He was subsequently catheterized and found to have a 100% mid LAD lesion, which was successfully stented with a drug-eluting stent. He was initiated on dual-antiplatelet therapy and a statin. During his hospitalization, he required circulatory support with a balloon pump. He was treated with hypothermia after cardiac arrest protocol. Eventually, he was able to be extubated. He had been treated with a heparin infusion. He had a large hematoma of the left groin with significant bleeding. This was successfully treated with mechanical methods. He needed a blood transfusion. He had a large GI bleed. He had had a colonoscopy done about a week before his hospitalization, and pathology was consistent with ulcerative colitis. He was treated with mesalamine. He did well in rehabilitation. He recovered independence for bed mobility and transfers. He had a low fall risk with a 51/56 score on the Castaneda Balance, and climbed and descended 12 stairs with 1 rail. He was independent with activities of daily living. A right visual field cut was noted. He had issues with memory and attention, and occasional word retrieval. Additionally, he had decreased reading abilities due to the right visual field cut. He will likely need assistance with medication management, and he will need to have significant recovery before he is able to return to work. He had a hoarse voice, which likely was the result of intubation. He was evaluated for this by Speech and Language Pathology, with the recommendation that, if the hoarseness persists, he should have evaluation by ENT and consider endoscopy to rule out granuloma formation. Regarding coronary artery disease, he was maintained on dual-antiplatelet therapy. He was discharged on lisinopril 5 mg daily and metoprolol 12.5 mg daily. His blood pressure was running low. Parameters were added for metoprolol, and he was not able to tolerate it for most of his rehabilitation stay, due to low blood pressure. Lisinopril was decreased from 5 mg to 2.5 mg. Evaluation showed a normal BMP with no dehydration. Anemia was improving on CBC. BNP was indeterminate at 439, neither ruling in nor ruling out CHF. On the day of discharge, blood pressure is 102/70. Regarding ulcerative colitis, he had good response to mesalamine, which was continued. Regarding anemia, CBC was followed. O 08/19/2018, hemoglobin was 8.5, and hematocrit was 27.4. On 08/23/2018, hemoglobin was 10.3, and hematocrit was 32.6. DISCHARGE PLAN: Condition upon discharge is good. Activity is ad sammy. Diet is cardiac. MEDICATIONS UPON DISCHARGE: 1. Aspirin 81 mg p.o. daily. 2. Atorvastatin 40 mg p.o. at bedtime. 3. Lisinopril 2.5 mg p.o. daily. 4. Mesalamine 3.6 g p.o. daily. 5. Metoprolol 6.125 to 12.5 mg p.o. twice daily but hold if systolic pressure is less than 105. 6. Pantoprazole 40 mg p.o. twice daily. 7. Ticagrelor 90 mg p.o. twice daily. ISSUES TO BE ADDRESSED AT FOLLOWUP: 1. Mobility, functional status, cognition, and communication. He will continue outpatient PT, OT, and MORTGAGE LOAN COUNSELOR, and he can follow up regarding these issues with his primary care provider. 2. Hoarseness. Consider ENT followup if his voice is not improved. 3. Coronary artery disease with insufficient blood pressure to tolerate metoprolol. He has followup on the day of discharge with district sales coordinator, Dr. Lee. 4. Ulcerative colitis. He has done well on his mesalamine dose. He will followup with automatic gluing machine operator, Dr. Jimenez. 5. Coronary artery disease, status post stenting. He will be referred to cardiac rehabilitation. TIME SPENT ON DISCHARGE: Greater than 30 minutes was spent on this discharge including medication reconciliation, coordination of care, and counseling patient and . Copy requested to: Jesus Jimenez /[id number]/MODL MTDD
== END 2018-08-24 11:21 | disposition home or self-care (01) | DRG 57 ==
LOC: BREH 12:42
PROVIDERS: ADMIT Internal Medicine Hospice and Palliative Medicine; ATTEND Internal Medicine Hospice and Palliative Medicine
PROC: F0636ZZ Communicative/Cognitive Integration Skills Treatment of Neurological System - Whole Body (ICD-10-PCS; principal; 2018-08-18)
PROC: F08Z7ZZ Vocational Activities and Functional Community or Work Reintegration Skills Treatment (ICD-10-PCS; principal; 2018-08-18)
PROC: F07M3ZZ Motor Function Treatment of Musculoskeletal System - Whole Body (ICD-10-PCS; principal; 2018-08-18)
DX: I69.398 Other sequelae of cerebral infarction (principal); H53.451 Other localized visual field defect, right eye; I69.312 Visuospatial deficit and spatial neglect following cerebral infarction; D50.0 Iron deficiency anemia secondary to blood loss (chronic); K51.90 Ulcerative colitis, unspecified, without complications; R05 Cough; I25.10 Atherosclerotic heart disease of native coronary artery without angina pectoris; Z95.5 Presence of coronary angioplasty implant and graft; Z79.02 Long term (current) use of antithrombotics/antiplatelets; Z86.74 Personal history of sudden cardiac arrest; Z87.891 Personal history of nicotine dependence; I25.2 Old myocardial infarction
CPT/HCPCS: 92507-GN; 92523-GN; 92526-GN; 92610-GN; 97110-GO; 97110-GP; 97112-GP; 97116-GP; 97161-GP; 97165-GO; 97530-GO; 97530-GP; 97535-GO; G0515-GO